=== PATIENT | female | born 1990 | race Caucasian/White ===

== ENCOUNTER 2019-12-18 11:08 | Emergency (ER) | payer OTHER, SELFPAY ==
--- NOTE | ~2019-12-18 | XR_ITS ---
XR foot LT min 3V 12/18/2019 11:29 INDICATION: Twisting injury. Left lateral foot pain. PROCEDURE: 4 views left foot COMPARISON: No prior studies for comparison. FINDINGS: Fracture, dislocation or subluxation is not identified. Lisfranc joint intact. There is a d egenerative calcaneal enthesophyte. The soft tissues appear within normal limits. No foreign bodies are identified. IMPRESSION: 1: NO ACUTE BONE OR JOINT ABNORMALITY IDENTIFIED. Reviewed, dictated and finalized at location A.
[2019-12-18 11:19] VITALS: BP 141/87; PULSE 81; RESP 16; TEMP 36.6; O2SAT 100
--- NOTE | 2019-12-18 12:36 | ED.GENADULT ---
HPI - General Adult General Chief complaint: Extremity Injury, Lower Stated complaint: lt foot injury Time Seen by Provider: 12/18/19 12:36 Source: patient and RN notes reviewed Limitations: no limitations History of Present Illness HPI narrative: 29-year-old female presents with complaints of left lateral foot pain and swelling for the past 2 days. Tylenol (last on 12/17/2019 at 9 PM) with some relief. History of stress fracture to LT foot. Arabella says she slipped and landed on her LT foot. Hurts to bear weight. No radiation of pain. No numbness, tingling, or loss of mobility. Exacerbating factor applying weight. Denies inability to bear weight. Denies discoloration. Denies suspect foreign body. Denies fever or chills. Arabella denies being , LMP 12/07/2019. Some parts of this dictation were generated by voice recognition software and may contain typographical and/or grammatical inaccuracies. Related Data Allergies Allergy/AdvReac Type Severity Reaction Status Date / Time cefpodoxime [From Vantin] Allergy Hives Verified 12/18/19 11:17 Review of Systems Review of Systems: Narrative: CONSTITUTIONAL: Denies fever, chills, sweats. EYES: Denies visual changes, redness, discharge. ENT: Denies rhinorrhea, congestion, sore throat, otalgia. CARDIOVASCULAR: Denies chest pain, palpitations, edema. RESPIRATORY: Denies dyspnea, wheezing, cough. GASTROINTESTINAL: Denies abdominal pain, nausea, vomiting, diarrhea. GENITOURINARY: Denies dysuria, hematuria, abnormal discharge. SKIN: Denies rash or itching. MUSCULOSKELETAL: Denies acute back pain or myalgia. Complains of pain and swelling to left lateral foot. NEUROLOGIC: Denies numbness or focal weakness. PSYCHIATRIC: Denies anxiety or depression. All other systems reviewed & are unremarkable except as noted in HPI and below. [facility] Past Medical History Medical History (Updated 12/19/19 @ 00:00 by Felicia Daemmorro) Stress fracture Bilateral Surgical History Surgical History (Updated 12/18/19 @ 12:43 by VINOD August) History of elbow surgery Bilateral Family History Family History (Updated 12/18/19 @ 12:44 by VINOD August) Mother Asthma Grandparent Diabetes mellitus Heart disease Hypertension Social History Social History (Updated 12/18/19 @ 12:44 by VINOD August) Smoking packs per day: 0.5 Smoking cigarettes per day: 10.0 Years smoked: 10 Smoking pack-years: 5.00 Smoking status: Current every day smoker Second hand tobacco smoke exposure: No Alcohol intake: current Alcohol use details: Rarely Substance use: never Living arrangements: with family Occupation/Education: occupation Gender identity (if verbalized by the patient): Female Comments At time of signature, agree with nurse past medical, surgical, social, and family history. There is no relevant family history pertinent to the presenting complaint. Exam Narrative: Exam Narrative: GENERAL: This is a well-nourished, well-developed patient, in no apparent distress. Ambulates with a limp favoring left lower extremity. HEAD: normocephalic, atraumatic. EYES: PERRL. Sclera clear/white. Vision is grossly intact. CARDIOVASCULAR: Regular rate and rhythm without murmurs, gallops, or rubs. RESPIRATORY: Clear to auscultation. Breath sounds equal bilaterally. No wheezes, rales, or rhonchi. GASTROINTESTINAL: Abdomen soft, non-tender, nondistended. Bowel sounds are active. No hepato-splenomegaly, or palpable masses. No guarding. SKIN: warm, intact with no suspicious lesions or rash, good texture and turgor. NEURO: awake, alert, and oriented to person, place and time. There were no obvious focal neurologic abnormalities. EXTREMITIES: No clubbing, cyanosis, or edema. LT lateral foot with mild-moderate tenderness on palpation and with manipulation. Skin intact. No significant swelling, no erythema, or ecchymosis to LT foot including toes, nor
== END 2019-12-18 12:55 | disposition home or self-care (01) ==
PROVIDERS: Emergency Provider Nurse Practitioner Family
DX: S93.602A Unspecified sprain of left foot, initial encounter (principal); X58.XXXA Exposure to other specified factors, initial encounter; F17.210 Nicotine dependence, cigarettes, uncomplicated
CPT/HCPCS: 73630; 99203; G0463

== ENCOUNTER 2020-10-15 10:16 | Emergency (ER) | payer OTHER, SELFPAY ==
[2020-10-15 10:22] VITALS: BP 145/95; PULSE 88; RESP 15; TEMP 36.6; O2SAT 100
--- NOTE | 2020-10-15 10:41 | ED.GENADULT ---
HPI - General Adult General Chief complaint: Abdominal Pain Stated complaint: ABD pain, diarrhea Time Seen by Provider: 10/15/20 10:32 Source: RN notes reviewed History of Present Illness HPI narrative: Patient presents to emergency department from home for diarrhea. Patient states symptoms began at 5 AM this morning associated with diffuse abdominal pain described as cramping patient denies any nausea or vomiting she denies any fevers or chills chest pain shortness of breath. States that she is on amitriptyline which was increased from 25 mg to 50 mg this weekend and concerned this could be contributing to her diarrhea denies any other symptoms at this time states she was feeling fine last night prior to going to bed. Patient denies any recent antibiotic use. Denies any blood in the stool Related Data Home Medications Medication Instructions Recorded Confirmed amitriptyline 50 mg PO HS 10/15/20 10/15/20 Allergies Allergy/AdvReac Type Severity Reaction Status Date / Time cefpodoxime [From Vantin] Allergy Hives Verified 12/18/19 11:17 Review of Systems Review of Systems: Narrative: Gen.: Denies fevers or chills Eyes: Denies eye pain or visual change ENT: Denies congestion Respiratory: Denies shortness of breath or cough CV: Denies chest pain or palpitations GI: See HPI Musculoskeletal: Denies back pain or muscle pain Neuro: Denies numbness, tingling, weakness or focal weakness Skin: Denies rash Except as documented, all other systems reviewed and negative PMFSH Past Medical History Medical History Stress fracture Bilateral Surgical History Surgical History (Updated 12/18/19 @ 12:43 by VINOD August) History of elbow surgery Bilateral Family History Family History (Updated 12/18/19 @ 12:44 by VINOD August) Mother Asthma Grandparent Diabetes mellitus Heart disease Hypertension Social History Social History Smoking packs per day: 0.5 Smoking cigarettes per day: 10.0 Years smoked: 10 Smoking pack-years: 5.00 Smoking status: Current every day smoker Second hand tobacco smoke exposure: No Alcohol intake: current Substance use: never Gender identity (if verbalized by the patient): Female Exam Narrative: Exam Narrative: APPEARANCE: No acute distress, nontoxic, resting in bed HEENT: Normocephalic, atraumatic, OMM RESPIRATORY: No respiratory distress, clear to auscultation bilaterally with no rhonchi wheezing or rales CARDIOVASCULAR: RRR s murmur ABDOMINAL: Soft, nondistended mild diffuse tender palpation no rebound or guarding MUSCULOSKELETAl: Moves all extremities. No clubbing, cyanosis or edema. NEURO: Awake and alert. Following commands, speech normal, no focal deficits SKIN:: Warm, dry. Normal Color PSYCHIATRIC: Normal affect/mood Course Course Emergency Course: Reviewed amitriptyline does not cause diarrhea Patient states that they are feeling much better at this time. States abdominal pain has resolved. Repeat abdominal exam shows the patient's abdomen to be soft and nontender. Discussed with patient results of workup and diagnosis. Discussed need for follow-up with primary care physician, reasons to return to the emergency department in proper use of medication. Patient understands and agrees to current treatment plan Vital Signs Vital signs: Vital Signs Temperature 97.8 F 10/15/20 10:22 Pulse Rate 88 10/15/20 10:22 Respiratory Rate 15 10/15/20 10:22 Blood Pressure 145/95 H 10/15/20 10:22 Pulse Oximetry 100 10/15/20 10:22 Temperature 97.8 F 10/15/20 10:22 Pulse Rate 81 10/15/20 11:12 Respiratory Rate 16 10/15/20 11:12 Blood Pressure 140/99 H 10/15/20 11:12 Pulse Oximetry 97 10/15/20 11:12 Medical Decision Making MDM Narrative Medical decision making narrative: Patient's abdomen is soft without
[2020-10-15 10:49] LABS: Add Urine Microscopic? YES; Appearance Urine Clear (Clear); Bilirubin Urine Negative (Negative); Blood Urine 1+ (Negative); Color Urine Colorless (Yellow); Glucose Urine UA Negative (Negative); Ketones Urine Negative (Negative); Leukocyte Esterase Ur Negative LEU/UL (Negative); Nitrate Urine Negative (Negative); Protein Urine Negative (Negative); RBC Urine 0-2 /hpf (0-2); Specific Grav Ur 1.009 (1.001-1.035); Squamous Epithelial Cell Urine Few /hpf (Few); Urobilinogen Urine Negative mg/dL (<2.0); WBC Urine 0-3 /hpf
[2020-10-15 11:12] VITALS: BP 140/99; PULSE 81; RESP 16; O2SAT 97
[2020-10-15 11:15] LABS: Basophils Absolute Auto 0.1 K/mm3 (0.0-0.1); Basophils Percent Auto 0.4 % (0.2-1.2); Eosinophils Absolute Auto 0.2 K/mm3 (0-0.3); Eosinophils Percent Auto 1.4 % (0-4.4); Hematocrit 45.7 % (37.0-47.0); Hemoglobin 15.3 g/dL (12.0-15.0); Immature Granulocyte Absolute 0.03 K/mm3 (0.00-0.031); Immature Granulocyte Percent A 0.2 % (0-0.5); Lymphocytes Absolute Auto 2.23 K/mm3 (0.9-3.2); Lymphocytes Percent Auto 16.9 % (18.3-44.2); Mean Corpuscular HGB Conc 33.5 g/dl (32-36); Mean Corpuscular Hemoglobin 32.6 pg (26-34); Mean Corpuscular Volume 97.2 fl (80-100); Mean Platelet Volume 9.9 fl (7.4-10.4); Monocytes Absolute Auto 0.7 K/mm3 (0.1-0.6); Monocytes Percent Auto 5.5 % (2.6-8.5); Neutrophils Percent Auto 75.6 % (45.5-73.1); Platelet Count Result 364 k/mm3 (150-375); Red Cell Distribution Width 12.6 % (11.5-14.5); White Blood Count 13.2 K/mm3 (4.5-10.0)
[2020-10-15] MEDS: SODIUM CHLORIDE 0.9% IV 1,000 ML 999 ML IV CONT (11:17)
[2020-10-15 11:29] LABS: Alanine Aminotransferase 17 U/L (4-35); Alkaline Phosphatase 57 U/L (38-126); Anion Gap 6 mmol/L (8-16); Aspartate Amino Transferase 26 U/L (14-36); Bilirubin,Total 0.5 mg/dL (0.2-1.3); Blood Urea Nitrogen 10 mg/dL (7-17); Calcium 9.3 mg/dL (8.4-10.2); Carbon Dioxide 26 mmol/L (22-30); Chloride 105 mmol/L (98-107); Estimated CRCL calculation 120 ml/min; Estimated Glomerular Filt Rate > 60; Glucose 102 mg/dL (65-105); Lipase 91 U/L (23-300); Potassium 4.3 mmol/L (3.4-5.0); Sodium 137 mmol/L (137-145)
[2020-10-15 12:45] VITALS: BP 132/76; PULSE 70; RESP 14; O2SAT 96
== END 2020-10-15 12:45 | disposition home or self-care (01) ==
PROVIDERS: Emergency Provider Emergency Medicine
DX: R19.7 Diarrhea, unspecified (principal); R10.9 Unspecified abdominal pain; F17.210 Nicotine dependence, cigarettes, uncomplicated
CPT/HCPCS: 36415; 80053; 81001; 81025; 83690; 85025; 96361; 96374; 99284; J0131; J7030